=== PATIENT | female | born 1970 | race Hispanic/Latino ===

== ENCOUNTER → 2018-07-24 | Outpatient (CLI) | payer OTHER | LOC: MAMMO 10:37 | PROVIDERS: ATTEND Obstetrics & Gynecology | DX: Z12.31 Encounter for screening mammogram for malignant neoplasm of breast (principal) | CPT/HCPCS: 77067 ==

== ENCOUNTER → 2018-08-25 | Day surgery (SDC) | payer OTHER ==
[2018-08-24 11:31] LABS: BASOPHILS % 0.5 % (0.0-1.0); EOSINOPHILS # (AUTO) 0.3 (0.0-0.4); EOSINOPHILS % 3.5 % (0.0-6.0); HEMOGLOBIN 13.3 g/dL (12.0-16.0); LYMPHOCYTES # (AUTO) 2.2 (1.0-3.2); LYMPHOCYTES % 26.5 % (18.0-39.1); MEAN CORPUSCULAR HEMOGLOBIN 29.8 pg (28-32); MEAN CORPUSCULAR HGB CONC 32.4 g/dL (31-35); MEAN CORPUSCULAR VOLUME 91.7 fL (81-99); MONOCYTES # (AUTO) 0.7 (0.2-0.8); MONOCYTES % 8.2 % (4.4-11.3); NEUTROPHILS % 60.9 % (38.7-80.0); PLATELET COUNT 266 x10e3/uL (140-360); RED BLOOD COUNT 4.47 x10e6/uL (3.6-5.1)
[2018-08-24 11:52] LABS: CLARITY,URINE SL CLOUDY (CLEAR); COLOR,URINE YELLOW (YELLOW); LEUKOCYTE ESTERASE ,URINE TRACE (NEGATIVE); NITRITE,URINE NEGATIVE (NEGATIVE)
[2018-08-24 11:53] LABS: BILIRUBIN,URINE NEGATIVE (NEGATIVE); KETONES,URINE NEGATIVE (NEGATIVE); PROTEIN,URINE DIPSTICK TRACE (NEGATIVE); URINE UROBILINOGEN 0.2 mg/dL (0.2 - 1)
[~2018-08-25] MED LIST: BUPIVACAINE 0.25%/EPI 30ML SDV INJ ONE; DEXAMETHASONE SOD PHOS INJ 4 MG/ML VIAL ONE; DIPHENHYDRAMINE HCL INJ 50 MG/ML VIAL ONE; FENTANYL CITRATE/PF 100MCG/2 ML INJ ONE; HYDROMORPHONE 2MG/ML 2 MG/ML ML ONE; LEVOTHYROXINE50 MCG PO; LIDOCAINE HCL 2% LOCAL INJ 5 ML SDV VIAL INJ ONE; MIDAZOLAM HCL 2 MG/2 ML VIAL ONE; ONDANSETRON HCL INJ 2MG/ML 2ML 2 MG/ML VIAL ONE; PROMETHAZINE HCL (IM) 25 MG/ML VIAL ONE; PROPOFOL IV EMULSION 10 MG/ML 20 ML VIAL ONE; SEVOFLURANE INHAL SOLN 250 ML PEN BTL ONE
--- OUTSIDE RECORDS SUMMARY | 2018-08-25 11:23 | XMS REPORT ---
[facility] Address Unknown Phone Unavailable Care Team Providers Care Controls Technician Name Role Phone NATALI BURTON Unavailable Unavailable Problems This patient has no known problems. Allergies, Adverse Reactions, Alerts This patient has no known allergies or adverse reactions. Medications This patient has no known medications. Results Test Description Test Time Test Comments Text Results Atomic Results Result Comments MAMMOGRAPHY DIGITAL SCR BILAT 2018-07-24 12:22:00 [place] [address] Patient Name: HEBERT MICHAUD MR #: [id number] : 1970 Age/Sex: 47/F Req #: [id number] [facility] Physician: Ordered by: NATALI BURTON MD Report #: [id number] Location: MAMMO Room/Bed: Procedure: [id number] MG/MAMMOGRAPHY DIGITAL SCR BILAT Exam Date: 07/24/18 Exam Time: 1100 REPORT STATUS: Signed #[id number] - MGSCRBIL #BILATERAL DIGITAL SCREENING MAMMOGRAM WITH CAD: 07/24/2018 CLINICAL: Routine screening. Comparison is made to exams dated: 08/25/2016 mammogram, 07/21/2015 mammogram and 05/02/2013 mammogram - [facility]. Current study contains 4 films. The tissue of both breasts is heterogeneously dense. This may lower the sensitivity of mammography. Current study was also evaluated with a Computer Aided Detection (CAD) system. There are benign calcifications in the right breast. No significant masses, calcifications, or other findings are seen in either breast. There has been no significant interval change. IMPRESSION: BENIGN There is no mammographic evidence of malignancy. A 1 year screening mammogram is recommended. The patient will be notified by letter of the results. Maikel sawant/carole:08/08/2018 11:16:22 Spring Inspector: Swetha PASTRANA)(Sindhu), [facility] letter sent: Compared to Prior B9 Mammogram BI- RADS: 2 Benign Dictated By: MAIKEL STARK DO [id number] Transcribed By: CAROLE on 08/08/18 1116 COPY TO: NATALI BURTON MD
[2018-08-25 18:00] VITALS: BP 122/62
--- NOTE | 2018-08-25 21:15 | Operative Report ---
DATE OF PROCEDURE: 08/25/2018 SURGEON: Shabbir Bustamante MD PREOPERATIVE DIAGNOSES: Desires elective sterilization and lost intrauterine device. POSTOPERATIVE DIAGNOSES: Desires elective sterilization and lost intrauterine device. OPERATIVE PROCEDURE: Laparoscopic tubal ligation via cautery and removal of lost intrauterine device. ANESTHESIA: General with Dr. Mata and Archie and assistant accounting manager. INDICATIONS FOR OPERATION: The patient is a 47-year-old 3, para 3, with last menstrual period in [address], who presents requesting elective sterilization. Her IUD has been lost, the strings could not be located. When she was evaluated in the office, the IUD was noted within the endometrial cavity at the level of the fundus, but no strings could be identified. She is therefore taken to the operating room at this time for tubal ligation and removal of IUD with possible hysteroscopy if the IUD cannot be removed without visualization. She is therefore taken to the operating room at this time. FINDINGS OF SURGERY: There were normal uterus, tubes, and ovaries. The IUD string was not seen. The cavity was probed. The IUD was located, removed, and discarded after IUD was shown to everyone in the room. DESCRIPTION OF PROCEDURE: The patient was taken to the operating room and placed on the table in the supine position. General anesthesia was administered. The patient was then placed in the lithotomy position. The perineum was prepared and draped in the usual sterile manner as was the abdomen. The bladder was drained by in and out catheterization. A weighted speculum was placed into the vaginal wall, then the cervix was visualized and no IUD string was noted. Cervix was dilated slightly with Hilton dilators, then using a Sopher forceps, the endometrial cavity was probed in attempt to locate the IUD. First and second attempts were unsuccessful. On the third attempt, we used a Kevorkian curette to probe and this was successful in releasing the IUD from the uterine wall and it was then brought down and using dressing forceps, the string was grasped and it was brought out and then shown to everyone present and then discarded. At this point, building equipment operator re-scrubbed, put on new gown and gloves and then proceeded with the abdominal portion of the procedure. Small incision was made just superior to the umbilicus in the midline. The Veress needle was inserted through the incision into the peritoneal cavity. Pneumoperitoneum was created by insufflation of 3 L of carbon dioxide gas and a filling pressure of 8 to 10 mmHg. The Veress needle was removed and trocar was inserted into the peritoneal cavity. The laparoscope was placed with confirmation that the peritoneal cavity had been entered. A second trocar was placed in the midline suprapubic incision under direct visualization by laparoscopy. Trocar was removed. Probe was placed and the contents of the abdomen and pelvis were visualized with the findings of normal uterus, tubes, and ovaries. There were no adhesions seen. Attention was turned to the right tube. It was grasped at the mid ampullary portion, traced to the fimbriated end for positive identification. The mid ampullary portion of the tube was then cauterized in three places using LigaSure instrument. Cautery was performed on each side until the ammeter noted no resistance to cautery. It was apparent that the right tube was completely occluded. Attention was then turned to the left tube where it was grasped at the mid ampullary portion, traced to the fimbriated end for positive identification. The mid ampullary portion of the tube was then cauterized in three places. Cautery was continued on each side until the ammeter indicated there was no resistance of tissue. It was apparent that the left tube was completely occluded. At this point, the procedure was deemed terminated. All the air and instruments were removed from the abdomen. The skin incisions were closed with inverted stitches of 4-0 Monocryl suture, thus completing the procedure. There were no complications noted. Estimated blood loss was 10 mL. The patient tolerated the procedure well and was transferred from the operating room to the recovery room in stable condition. MD KANE Colby/MODL /[id number]
== END | disposition home or self-care (01) ==
LOC: OR 11:21
PROVIDERS: ATTEND Obstetrics & Gynecology
DX: Z30.2 Encounter for sterilization (principal); E03.9 Hypothyroidism, unspecified; R05 Cough; Z30.432 Encounter for removal of intrauterine contraceptive device; Z01.812 Encounter for preprocedural laboratory examination
CPT/HCPCS: 36415; 58301; 58670; 81003; 84702; 85025; J1100; J1170; J1200; J2001; J2250; J2405; J2550; J2704

== ENCOUNTER → 2020-05-26 | Outpatient (CLI) | payer OTHER ==
[~2020-05-26] MED LIST changes: -BUPIVACAINE 0.25%/EPI 30ML SDV INJ ONE; -DEXAMETHASONE SOD PHOS INJ 4 MG/ML VIAL ONE; -DIPHENHYDRAMINE HCL INJ 50 MG/ML VIAL ONE; -FENTANYL CITRATE/PF 100MCG/2 ML INJ ONE; -HYDROMORPHONE 2MG/ML 2 MG/ML ML ONE; -LIDOCAINE HCL 2% LOCAL INJ 5 ML SDV VIAL INJ ONE; -MIDAZOLAM HCL 2 MG/2 ML VIAL ONE; -ONDANSETRON HCL INJ 2MG/ML 2ML 2 MG/ML VIAL ONE; -PROMETHAZINE HCL (IM) 25 MG/ML VIAL ONE; -PROPOFOL IV EMULSION 10 MG/ML 20 ML VIAL ONE; -SEVOFLURANE INHAL SOLN 250 ML PEN BTL ONE
== END ==
LOC: MAMMO 11:09
PROVIDERS: ATTEND Internal Medicine
DX: Z12.31 Encounter for screening mammogram for malignant neoplasm of breast (principal)
CPT/HCPCS: 77067

== ENCOUNTER → 2021-10-06 | Outpatient (CLI) | payer OTHER | LOC: MAMMO 08:08 | PROVIDERS: ATTEND Obstetrics & Gynecology | DX: Z12.31 Encounter for screening mammogram for malignant neoplasm of breast (principal) | CPT/HCPCS: 77067 ==